=== PATIENT | female | born 1960 | race African-American/Black ===

== ENCOUNTER 2018-01-16 09:13 | Outpatient (CLI) | payer OTHER ==
--- NOTE | 2018-01-16 12:59 | MMO ---
BILATERAL SCREENING MAMMOGRAM: Date: 01/16/18 HISTORY: Screening. COMPARISON: None. TECHNIQUE: Bilateral screening CC and MLO mammograms. This patient's mammogram was interpreted with the assistance of computer-aided detection. FINDINGS: There is a scar marker in the right breast. The breasts are extremely dense, which limits the sensiti vity of mammography. Benign-appearing calcifications in both breasts. IMPRESSION: BIRADS 2: Benign Finding(s) Continued annual mammographic screening is recommended. POS: CHIP
== END 2018-01-16 09:14 | disposition home or self-care (01) ==
LOC: SCSMAMMO 09:13
PROVIDERS: ATTEND Family Medicine
DX: Z12.31 Encounter for screening mammogram for malignant neoplasm of breast (principal)
CPT/HCPCS: 77067

== ENCOUNTER 2018-02-23 07:16 | Outpatient (CLI) | payer OTHER ==
--- NOTE | 2018-02-23 15:24 | NM ---
RADIONUCLIDE PARATHYROID SCAN WITH PLANAR AND SPECT CT IMAGES: Date: 02/23/18 HISTORY: Hyperparathyroidism, unspecified. RADIOPHARMACEUTICAL: 25 mCi technetium-99m sestamibi injected intravenously. FINDINGS: There is physiologic activity in the salivary glands and the thyroid gland. There is a foal area of persistently increased uptake in the region of the left inferior parathyroid gland. IMPRESSION: Left-sided parathyroid adenoma. POS: CHIP
== END 2018-02-23 07:17 | disposition home or self-care (01) ==
LOC: NM 07:16
PROVIDERS: ATTEND Otolaryngology Plastic Surgery within the Head & Neck
DX: E21.3 Hyperparathyroidism, unspecified (principal); D35.1 Benign neoplasm of parathyroid gland
CPT/HCPCS: 78072; A9500

== ENCOUNTER 2018-03-08 07:41 | Day surgery (SDC) | payer OTHER, SELFPAY ==
[2018-03-07 12:02] VITALS: BMI 29.2
[2018-03-08] MEDS ORDERED: Fentanyl 100 MCG/2 ML VIAL ONE ×3 (10:36→12:36)
[2018-03-08] MEDS ORDERED: Ondansetron PF 4 MG/2 ML Vial ONE ×2 (10:37→11:19)
[2018-03-08] MEDS ORDERED: Lidocaine 1% w/Epinephrine 1:200K 30 ML VIAL ONE (10:39)
[2018-03-08] MEDS ORDERED: Succinylcholine Chloride 20 MG/ML 10 ml SYRINGE FS ONE (11:19)
[2018-03-08] MEDS ORDERED: PHENYLEPHRINE-NS 100 MCG/ML 10 ML SYRINGE ONE (11:19)
[2018-03-08] MEDS ORDERED: PROPOFOL 200 MG/20 ML VIAL ONE (11:19)
[2018-03-08] MEDS ORDERED: Dexamethasone 20 MG/5 ML VIAL ONE (11:19)
[2018-03-08] MEDS ORDERED: Ketorolac Tromethamine 30 MG/ML VIAL ONE (11:19)
[2018-03-08] MEDS ORDERED: Lidocaine 1% PF 5 ML VIAL ONE (11:19)
--- NOTE | 2018-03-09 14:22 | OP ---
DATE OF SURGERY: 03/13/2018 PREOPERATIVE DIAGNOSES: 1. Hyperparathyroidism. 2. Hypercalcemia. POSTOPERATIVE DIAGNOSES: 1. Hyperparathyroidism. 2. Hypercalcemia. PROCEDURES PERFORMED: 1. Parathyroid exploration and left superior and inferior parathyroidectomy. 2. Intraoperative laryngeal nerve monitoring. SURGEON: Unruly Villasenor M.D. [employer]: ANESTHESIA: GETA. ESTIMATED BLOOD LOSS: Less than 10 mL. PROCEDURE IN DETAIL: The patient was taken to the operating room and placed supine on the table. Ge neral endotracheal anesthesia was obtained by the Anesthesia staff. Tube was secured in the midline of the upper lip. The laryngeal electrodes then confirmed to be between the vocal cord after shoulde r roll and the tube was secured to the midline of the upper lip. The patient was prepped and d raped in standard surgical fashion. A 5 mL of 1% lidocaine with 1:100,000 epinephrine was injected i nto a skin crease above the clavicle. Following this, an incision was made. The patient was prepped and draped in standard surgical fashion. Incision was made with a 15-blade overlying the thyroid an d parathyroid area approximately 4-5 cm. Dissection was carried through skin and subcutaneous tissue s as well as the platysmal layer. The strap muscles were then identified and some were retracted med ially and some retracted laterally exposing the posterior aspect of the thyroid bed. Following this, great vessels were identified and were retracted laterally gently alongside the thyroid. The inferi or thyroid area and superior thyroid was identified. At the inferior most aspect of the thyroid, the inferior parathyroid gland was identified. It was noted to be calcified and hard. This was sent fo r pathological analysis which confirmed a hypercellular parathyroid tissue. Further exploration of t he superior aspect of the thyroid lobe and staying just above the left recurrent laryngeal nerve, a v an large approximately 3 cm parathyroid adenoma was encountered and was removed. Following this, th e wound was irrigated. Hemostasis obtained. Monocryl stitches were used to reapproximate the strap muscles as well as the platysmal layer and subcuticular layers. Dermabond was placed on the skin. T he patient tolerated procedure well. Pathological analysis, intraoperative frozen sections as well a s rapid PTH assays confirmed removal of the appropriate parathyroid glands.
--- NOTE | 2018-03-12 08:46 | EKG ---
Test Reason : PREOP Blood Pressure : / mmHG Vent. Rate : 064 BPM Atrial Rate : 064 BPM P-R Int : 148 ms QRS Dur : 086 ms QT Int : 376 ms P-R-T Axes : 038 -31 -02 degrees QTc Int : 387 ms Normal sinus rhythm Left axis deviation Abnormal ECG Confirmed by MAJOR RUCKER MD ([id number]) on 03/12/2018 8:46:04 AM Referred By: KELSEY Confirmed By:MAJOR RUCKER MD
== END 2018-03-08 14:15 | disposition home or self-care (01) ==
LOC: SDC 07:41
PROVIDERS: ATTEND Otolaryngology Plastic Surgery within the Head & Neck
PROC: 0GTM0ZZ Resection of Left Superior Parathyroid Gland, Open Approach (ICD-10-PCS; principal; 2018-03-08)
PROC: 0GTP0ZZ Resection of Left Inferior Parathyroid Gland, Open Approach (ICD-10-PCS; principal; 2018-03-08)
DX: E21.3 Hyperparathyroidism, unspecified (principal); I10 Essential (primary) hypertension; E11.9 Type 2 diabetes mellitus without complications; E66.9 Obesity, unspecified; D64.9 Anemia, unspecified; Z68.29 Body mass index [BMI] 29.0-29.9, adult; Z79.82 Long term (current) use of aspirin; Z79.84 Long term (current) use of oral hypoglycemic drugs; Z79.899 Other long term (current) drug therapy
CPT/HCPCS: 36415; 83970; 85014; 88305; 88331; 88334; 93005; 93010; 96374; J0131; J1100; J1885; J2001; J2405; J2704; J3010

== ENCOUNTER 2018-06-06 19:34 | Inpatient (IN) | payer OTHER ==
[2018-06-06 19:59] LABS: Base Excess-Venous 2.8 mmol/L (0 (+/- 2.5)); Bicarbonate (HCO3v) 26.3 mmol/L (1.0-85.0); CO2 Tension (PvCO2) 35.8 mmHg (41.0-51.0); Calcium, Ionized 1.01 mmol/L (1.12-1.32); Hemoglobin - Calc 12.9 g/dL (12.0-18.0); O2 Tension (PvO2) 67.6 mmHg (35.0-45.0); T. Carbon Dioxide 27.4 mmol/L (1.0-85.0); pH (Venous) 7.473 (7.35-7.45); vO2 Saturation-calc 94.5 % (94-98)
[2018-06-06 20:21] LABS: ALT (SGPT) 13 U/L (8-55); AST (SGOT) 15 U/L (5-34); Albumin 4.4 g/dL (3.5-5.0); Alkaline Phosphatase 103 U/L (40-150); Anion Gap 16 mmol/L (10-20); BUN (Urea Nitrogen) 31 mg/dL (9.8-20.1); Bilirubin, Total 0.4 mg/dL (0.2-1.2); Calc. Creatinine Clearance 0 mL/min (70-130); Calcium 10.2 mg/dL (7.8-10.44); Carbon Dioxide 25 mmol/L (22-29); Chloride 88 mmol/L (98-107); Estimated GFR-MDRD 27; Globulin 3.4 g/dL (2.4-3.5); Potassium 4.2 mmol/L (3.5-5.1); Protein, Total 7.8 g/dL (6.0-8.3); Sodium 125 mmol/L (136-145)
[2018-06-06 20:29] LABS: Glucose 759 mg/dL (70-105)
[2018-06-06 20:49] LABS: #Lymphocytes 1.1 thou/uL (1.20-3.40); #Monocytes 0.4 thou/uL (0.11-0.59); %Basophils 0.8 % (0.0-1.0); %Eosinophils 1.1 % (0.0-10.0); %Lymphocytes 24.5 % (21.0-51.0); %Monocytes 8.9 % (0.0-10.0); %Neutrophils 64.7 % (42.0-75.0); Hemoglobin 11.8 g/dL (12.0-16.0); Mean Corpuscular HGB CONC 34.6 g/dL (32.0-36.0); Mean Corpuscular Hemoglobin 28.2 pg (27.0-31.0); Mean Corpuscular Volume 81.5 fL (78.0-98.0); Mean Platelet Volume 7.9 fL (7.4-10.4); Platelet Count 310 thou/uL (130-400); RBC Distribution Width 12.8 % (11.5-14.5); Red Blood Cell (RBC) Count 4.18 mill/uL (4.20-5.40); White Blood Cell (WBC) Count 4.6 thou/uL (4.8-10.8)
[2018-06-06 20:54] LABS: Magnesium 2.3 mg/dL (1.6-2.6); Phosphorus 3.8 mg/dL (2.3-4.7)
[2018-06-06 21:46] LABS: Bilirubin Negative (Negative); Blood, Urine Negative (Negative); Clarity CLEAR (Clear); Glucose, Urine (Dipstick) >=1000 mg/dL (Negative); Leukocyte Small (Negative); Nitrite Negative (Negative); Protein, Urine (Dipstick) Negative (Neg-Trace); Specific Gravity, Urine 1.027 (1.002-1.036); Urobilinogen 0.2 mg/dL (0.2-1.0); pH, Urine 6.5 (5.0-9.0)
[2018-06-06 21:48] LABS: Bacteria/HPF None Seen HPF (None Seen); Hyaline Casts/LPF 0-3 HYALINE CAST LPF (0-3 Hyaline); Pathc Cast-AUWi Flag 0.29 (0-2.49); RBC/HPF 0-3 HPF (0-3); Squamous Epithelial 0-3 HPF (0-3); WBC/HPF 21-50 HPF (0-3)
[2018-06-06] MEDS ORDERED: Dextrose 50% Abboject 50 ML SYRINGE SLOW IVP PRN (23:53)
[2018-06-06] MEDS ORDERED: Dextrose 5% in Water 1,000 ML IV PRN (23:53)
[2018-06-06] MEDS ORDERED: Acetaminophen 325 MG TAB PO PRN (23:54)
[2018-06-06] MEDS ORDERED: Ondansetron HCl/PF 4 MG/2 ML Vial IVP PRN (23:54)
[2018-06-06] MEDS ORDERED: Insulin Regular 300 UNITS/3 ML VIAL ONE (23:58)
[2018-06-07 00:17] VITALS: BMI 29.2
[2018-06-07] MEDS ORDERED: Non-Formulary Item 1 EACH (Ranitidine Hcl [Zantac 75] 75 MG) PO PRN (02:37)
[2018-06-07] MEDS ORDERED: Famotidine 20 MG TAB PO PRN (02:40)
--- NOTE | 2018-06-07 04:32 | HP ---
CODE STATUS: FULL CODE. PRIMARY CARE PHYSICIAN: Peter Welch MD CHIEF COMPLAINT: She was called to come to the hospital due to high blood sugar. HISTORY OF PRESENT ILLNESS: This is a 57-year-old female patient with past medical history of diabet es type 2, which is being followed with Dr. Welch, and had received some medication adjustments in t he past few weeks. However, she has reported having uncontrolled high blood sugar and being difficul t to control even with the medication she was on. She also reported Dr. Welch has been adjusting me dications recently. She would like to have insulin on a regular basis. The patient went to see Dr. Welch today due to polydipsia and polyuria. Labs were drawn. Blood sugar was critically high and t herefore, she was called and requested to go to the ER for that reason. She has been seen in the ER. No other symptoms have been reported. No clear triggers. No alleviating factors. No evidence of any underlying condition triggering or worsening diabetes. REVIEW OF SYSTEMS: Constitutional: No fever or chills. Generalized weakness. Respiratory: No cou gh, no sputum production. Endocrine: The patient has increased polyuria and polydipsia. Cardiovasc ular: No chest pain, palpitation, or shortness of breath. Gastrointestinal: No nausea, vomiting, o r diarrhea. No abdominal pain. Central Nervous System: No dizziness, headache, or feeling lighthea ded. Genitourinary: No burning on urination, increased urine output. Extremities: No leg swelling . All other systems were reviewed and negative except for the findings mentioned above. PAST MEDICAL HISTORY: History of diabetes, hypertension. PAST SURGICAL HISTORY: Hysterectomy and parathyroidectomy. PSYCHIATRIC HISTORY: No previous psychiatric history. SOCIAL HISTORY: No alcohol, no drugs. No smoking history. The patient lives at home. FAMILY HISTORY: Mother with cardiac problems. Father from Alzheimer. ALLERGIES: No known drug allergies reported. MEDICATIONS: Metformin 500 mg 2 times a day, lisinopril 20 mg daily. PHYSICAL EXAMINATION: VITAL SIGNS: On presentation, blood pressure 110/88 with heart rate 99, respiratory rate was 18, tem perature 98.2, oxygen saturation 98 on room air. GENERAL APPEARANCE: The patient is alert, oriented, not in acute distress. HEENT: Eyes, normal conjunctivae. Dry oral mucosa. Anicteric. NECK: No JVD. RESPIRATORY: Bilateral air entry. No rales, no wheezing. Symmetric expansion. CARDIOVASCULAR: Normal rate, regular rhythm. No murmurs, no gallop, no edema. ABDOMEN: Soft. Normal bowel sounds. MUSCULOSKELETAL: Baseline range of motion and strength. No tenderness. SKIN: Warm and intact. No pallor, no rash, no redness. NEUROLOGIC: Baseline sensorium. No evidence of any new focal weakness. Baseline speech. Cranial n erves seem to be intact. PSYCHIATRIC: Good mood. No anxiety. Oriented, optimal judgment. LABORATORY DATA: Reviewed. The patient has a white count of 4.6, hemoglobin 11.8, platelet count 31 0. Blood gas was done. The patient has a VBG with pH of 7.47. Chemistry: Sodium 125, potassium 4. 2, chloride 88, carbon dioxide 25, anion gap 16, BUN 31, creatinine 2.12, that is increased from prev ious ____. GFR estimated at 27. Glucose 759, repeat glucose was 223 after treatment in ER. Calcium 10.2, phosphorus 3.8, magnesium 2.3, total bilirubin 0.4. LFTs were normal. Urinalysis was done an d the patient has a white count of 21 to 50 in urine. ASSESSMENT AND PLAN: The patient will be placed in the hospital with following medical condition: 1. Uncontrolled diabetes with blood sugar above 700, insulin with well controlled. The patient repo rted that she was only on pills, chronic metformin. We will reconcile home meds. Most likely the tristan mcneal will need insulin on a regular basis as outpatient. These have been discussed with her. She w ill follow up with primary care doctor for further management of diabetes. Likely triggered by under lying urinary tract infection. 2. Acute kidney injury on chronic kidney disease. The patient has an increase in creatinine ____, G FR 27. We will hydrate. We will monitor kidney function. We will adjust treatment as needed. Call Nephrology for assistance if no improvement. Avoid nephrotoxins. Hold EDDY. 3. Urinary tract infection, positive urinalysis. Follow up cultures. Adjust treatment as per sensi tivity. 4. Hyponatremia, due to hyperglycemia. The patient will need treatment for underlying condition. C orrected sodium is 131, this is mild. We will monitor. We will adjust treatment as needed. The pat ient is receiving NS. 5. History of hypertension, this is chronic, stable. We will reconcile home medications. Adjust tr eatment as needed. The patient is at high risk of complication given acute kidney injury.
[2018-06-07] MEDS: Sodium Chloride 0.9% 1,000 ML IV SCH ×2 (04:53→16:16)
[2018-06-07] MEDS: cefTRIAXone\\ROCEPHIN 1 GM in Sodium Chloride 0.9% 100 ML IVPB SCH (04:54)
[2018-06-07] MEDS: Insulin Regular 300 UNITS/3 ML VIAL SC PRN ×4 (05:04→21:21)
[2018-06-07 05:27] LABS: #Eosinphils 0.1 thou/uL (0.0-0.7); #Monocytes 0.4 thou/uL (0.11-0.59); #Neutrophils 2.4 thou/uL (1.40-6.50); %Basophils 0.6 % (0.0-1.0); %Eosinophils 1.3 % (0.0-10.0); %Lymphocytes 25.2 % (21.0-51.0); %Monocytes 9.3 % (0.0-10.0); %Neutrophils 63.5 % (42.0-75.0); Hemoglobin 10.5 g/dL (12.0-16.0); Mean Corpuscular Hemoglobin 27.8 pg (27.0-31.0); Mean Corpuscular Volume 81.7 fL (78.0-98.0); Mean Platelet Volume 7.7 fL (7.4-10.4); Platelet Count 238 thou/uL (130-400); RBC Distribution Width 12.5 % (11.5-14.5); Red Blood Cell (RBC) Count 3.76 mill/uL (4.20-5.40); White Blood Cell (WBC) Count 3.8 thou/uL (4.8-10.8)
[2018-06-07 05:50] LABS: Anion Gap 14 mmol/L (10-20); BUN (Urea Nitrogen) 26 mg/dL (9.8-20.1); Calc. Creatinine Clearance 51 mL/min (70-130); Calcium 9.9 mg/dL (7.8-10.44); Carbon Dioxide 26 mmol/L (22-29); Chloride 100 mmol/L (98-107); Estimated GFR-MDRD 44; Glucose 398 mg/dL (70-105); Potassium 3.9 mmol/L (3.5-5.1); Sodium 136 mmol/L (136-145)
[2018-06-07] MEDS ORDERED: Enoxaparin Sodium 40 MG/0.4 ML SYRINGE SC SCH (09:00)
[2018-06-07] MEDS ORDERED: Dapagliflozin Propanediol [Farxiga] 10 MG PO SCH (09:00)
[2018-06-07] MEDS: Loratadine 10 MG TAB PO SCH (09:11)
[2018-06-07] MEDS: Multivit, Therapeutic 1 TAB PO SCH (09:11)
[2018-06-07] MEDS ORDERED: Ondansetron ODT 4 MG TAB PO PRN (15:40)
[2018-06-07] MEDS ORDERED: Calcium Carbonate 500 MG ChewTAB PO PRN (15:40)
[2018-06-07] MEDS ORDERED: Mag-Al 1200 mg/1200 mg/30 ML UDCUP PO PRN (15:40)
[2018-06-07] MEDS ORDERED: Senokot 8.6 MG TAB PO PRN (15:40)
[2018-06-07] MEDS ORDERED: Insulin Glargine 20 UNITS in Pre-Filled Syringe SC SCH (16:00)
[2018-06-07] MEDS ORDERED: glipiZIDE 5 MG TAB PO SCH (16:00)
[2018-06-07] MEDS: Docusate 100 MG CAP PO SCH (21:23)
--- NOTE | 2018-06-07 21:41 | PDOC.PN ---
- Subjective Encounter Start Date: 06/07/18 Encounter Start Time: 17:00 Patient seen and examined for GEORGE/Uncontrolled DM2 and UTI. No new complaints. Feels better. No overnight events - Objective Resuscitation Status: Resuscitation Status FULL:Full Resuscitation MAR Reviewed: Yes Vital Signs & Weight: Vital Signs (12 hours) Temp Pulse Resp BP Pulse Ox 06/07/18 20:45 98.4 F 75 18 122/82 95 06/07/18 16:16 98.3 F 69 20 132/85 97 06/07/18 11:05 97.8 F 82 20 117/79 94 L Weight Weight 170 lb Result Diagrams: 06/08/18 04:21 06/08/18 04:21 Additional Labs: Accuchecks 06/07/18 06/07/18 06/07/18 15:48 11:09 05:04 POC Glucose 304 H 344 H 396 H 06/07/18 06/06/18 00:44 23:56 POC Glucose 223 H 537 H Phys Exam - Physical Examination Constitutional: NAD Respiratory: no wheezing, no rhonchi Cardiovascular: RRR, no rub Gastrointestinal: soft, non-tender, positive bowel sounds Musculoskeletal: no edema Neurological: moves all 4 limbs Dx/Plan - Plan DVT proph w/SCDs IMPRESSION: 1. Uncontrolled DM2 (A1c 15.6) with hyperglycemia 2. UTI 3. GEORGE on CKD 3 due to osmotic diuresis 4. Hyponatremia - prob due to hyperglycemia/dehydration 5. HTN 6. h/o Parathyroid adenoma s/p removal / Chronic Anemia - prob due to renal insuff / GERD PLAN: Start Lantus 20 units daily Start Glipizide at 2.5 mg/d due to renal dysfunction AM labs Cont IVF Hold ACEI / Farxiga Cont Ceftriaxone, Urine culture pending Change sliding scale to moderate Review of Systems - Review of Systems Respiratory: negative: Cough, Dry, Shortness of Breath, Hemoptysis, SOB with Excertion, Pleuritic Pain, Sputum, Wheezing Cardiovascular: negative: chest pain, palpitations, orthopnea, paroxysmal nocturnal dyspnea, edema, light headedness, other - Medications/Allergies Allergies/Adverse Reactions: Allergies Allergy/AdvReac Type Severity Reaction Status Date / Time No Known Drug Allergies Allergy Verified 03/07/18 11:47 Medications: Current Medications Acetaminophen (Tylenol) 650 mg PO Q4H PRN PRN Reason: Headache/Fever or Pain Al Hydroxide/Mg Hydroxide (Maalox) 30 ml PO Q6H PRN PRN Reason: Heartburn or Indigestion Aspirin (Aspirin Chewable) 81 mg PO DAILY [facility] Last Admin: 06/07/18 09:11 Dose: 81 mg Calcium Carbonate (Tums) 1,000 mg PO Q4H PRN PRN Reason: Heartburn or Indigestion Dextrose/Water (Dextrose 50%) 25 gm SLOW IVP PRN PRN PRN Reason: Hypoglycemia Docusate Sodium (Colace) 100 mg PO BID [facility] Last Admin: 06/07/18 21:23 Dose: Not Given Famotidine (Pepcid) 20 mg PO DAILYPRN PRN PRN Reason: ACID REFLUX Glipizide (Glucotrol) 2.5 mg PO DAILY-[facility] Glucagon (Glucagon) 1 mg IM PRN PRN PRN Reason: Hypoglycemia Dextrose/Water (D5w) 1,000 mls @ 0 mls/hr IV .Q0M PRN; As Directed PRN Reason: Hypoglycemia Ceftriaxone Sodium 1 gm/ (Sodium Chloride) 100 mls @ 200 mls/hr IVPB Q24HR [facility] Last Admin: 06/07/18 04:54 Dose: 100 mls Sodium Chloride (Normal Saline 0.9%) 1,000 mls @ 100 mls/hr IV .Q10H [facility] Last Admin: 06/07/18 16:16 Dose: 1,000 mls Insulin Glargine 20 units/ (Miscellaneous Medication) 0.2 mls @ 0 mls/hr SC QAM [facility] Insulin Human Regular (Humulin R) 0 units SC .MODERATE SLIDING SC PRN PRN Reason: Moderate Correctional Scale Last Admin: 06/07/18 16:15 Dose: 8 unit Insulin Human Regular (Humulin R) 0 units SC .BEDTIME SLIDING SC PRN PRN Reason: Bedtime Correctional Scale Last Admin: 06/07/18 21:21 Dose: 4 unit Loratadine (Claritin) 10 mg PO DAILY [facility] Last Admin: 06/07/18 09:11 Dose: 10 mg Multivitamins (Theragran) 1 tab PO DAILY [facility] Last Admin: 06/07/18 09:11 Dose: 1 tab Ondansetron HCl (Zofran) 4 mg IVP Q6H PRN PRN Reason: Nausea/Vomiting Ondansetron HCl (Zofran Odt) 4 mg PO Q6H PRN PRN Reason: Nausea/Vomiting Senna (Senokot) 2 tab PO HSPRN PRN PRN Reason: Constipation
[2018-06-08] MEDS: Sodium Chloride 0.9% 1,000 ML IV SCH ×2 (00:44→09:39)
[2018-06-08] MEDS: Insulin Regular 300 UNITS/3 ML VIAL SC PRN ×5 (02:07→20:25)
[2018-06-08 05:30] LABS: #Eosinphils 0.1 thou/uL (0.0-0.7); #Lymphocytes 1.2 thou/uL (1.20-3.40); #Monocytes 0.3 thou/uL (0.11-0.59); #Neutrophils 1.9 thou/uL (1.40-6.50); %Basophils 0.9 % (0.0-1.0); %Eosinophils 1.6 % (0.0-10.0); %Lymphocytes 34.3 % (21.0-51.0); %Monocytes 9.7 % (0.0-10.0); %Neutrophils 53.6 % (42.0-75.0); Hemoglobin 10.9 g/dL (12.0-16.0); Mean Corpuscular HGB CONC 32.3 g/dL (32.0-36.0); Mean Corpuscular Volume 83.6 fL (78.0-98.0); Mean Platelet Volume 7.9 fL (7.4-10.4); Platelet Count 246 thou/uL (130-400); RBC Distribution Width 12.8 % (11.5-14.5); Red Blood Cell (RBC) Count 4.03 mill/uL (4.20-5.40); White Blood Cell (WBC) Count 3.5 thou/uL (4.8-10.8)
[2018-06-08] MEDS: cefTRIAXone\\ROCEPHIN 1 GM in Sodium Chloride 0.9% 100 ML IVPB SCH (05:30)
[2018-06-08 05:49] LABS: Anion Gap 12 mmol/L (10-20); BUN (Urea Nitrogen) 20 mg/dL (9.8-20.1); Calc. Creatinine Clearance 68 mL/min (70-130); Calcium 9.7 mg/dL (7.8-10.44); Carbon Dioxide 24 mmol/L (22-29); Chloride 106 mmol/L (98-107); Estimated GFR-MDRD 62; Glucose 177 mg/dL (70-105); Magnesium 2.1 mg/dL (1.6-2.6); Potassium 4.1 mmol/L (3.5-5.1); Sodium 138 mmol/L (136-145)
[2018-06-08] MEDS ORDERED: glipiZIDE 5 MG TAB PO SCH (07:30)
[2018-06-08] MEDS ORDERED: Insulin Glargine 20 UNITS in Pre-Filled Syringe SC SCH (09:00)
[2018-06-08] MEDS: Loratadine 10 MG TAB PO SCH (09:40)
[2018-06-08] MEDS: Multivit, Therapeutic 1 TAB PO SCH (09:40)
[2018-06-08] MEDS: Docusate 100 MG CAP PO SCH ×2 (09:40→20:31)
--- NOTE | 2018-06-08 15:32 | PDOC.PN ---
- Subjective Encounter Start Date: 06/08/18 Encounter Start Time: 13:00 Patient seen and examined for UTI/GEORGE and uncontrolled DM2. No new complaints. No overnight events - Objective Resuscitation Status: Resuscitation Status FULL:Full Resuscitation MAR Reviewed: Yes Vital Signs & Weight: Vital Signs (12 hours) Temp Pulse Resp BP Pulse Ox 06/08/18 07:51 98.4 F 70 22 H 132/81 95 06/08/18 07:29 98.4 F 75 18 Weight Weight 170 lb Result Diagrams: 06/08/18 04:21 06/08/18 04:21 Additional Labs: Accuchecks 06/08/18 06/08/18 06/08/18 11:11 05:28 02:08 POC Glucose 328 H 151 H 222 H 06/07/18 06/07/18 21:23 15:48 POC Glucose 320 H 304 H Phys Exam - Physical Examination Constitutional: NAD Respiratory: no wheezing, no rhonchi Cardiovascular: RRR, no rub Gastrointestinal: soft, non-tender, positive bowel sounds Musculoskeletal: no edema Neurological: moves all 4 limbs Dx/Plan - Plan DVT proph w/SCDs IMPRESSION: 1. Uncontrolled DM2 (A1c 15.6) with hyperglycemia 2. UTI 3. GEORGE on CKD 3 due to osmotic diuresis - improving 4. Hyponatremia - prob due to hyperglycemia/dehydration 5. HTN 6. h/o Parathyroid adenoma s/p removal / Chronic Anemia - prob due to renal insuff / GERD PLAN: Cont Lantus with sliding scale Monitor glucose today DC Glipizide Change NS to 50 ml/hr Resume ACEI / Metformin in AM Cont Ceftriaxone Await Urine culture DC in AM if stable Review of Systems - Review of Systems Respiratory: negative: Cough, Dry, Shortness of Breath, Hemoptysis, SOB with Excertion, Pleuritic Pain, Sputum, Wheezing Cardiovascular: negative: chest pain, palpitations, orthopnea, paroxysmal nocturnal dyspnea, edema, light headedness, other - Medications/Allergies Allergies/Adverse Reactions: Allergies Allergy/AdvReac Type Severity Reaction Status Date / Time No Known Drug Allergies Allergy Verified 03/07/18 11:47 Medications: Current Medications Acetaminophen (Tylenol) 650 mg PO Q4H PRN PRN Reason: Headache/Fever or Pain Al Hydroxide/Mg Hydroxide (Maalox) 30 ml PO Q6H PRN PRN Reason: Heartburn or Indigestion Aspirin (Aspirin Chewable) 81 mg PO DAILY [facility] Last Admin: 06/08/18 09:40 Dose: 81 mg Calcium Carbonate (Tums) 1,000 mg PO Q4H PRN PRN Reason: Heartburn or Indigestion Dextrose/Water (Dextrose 50%) 25 gm SLOW IVP PRN PRN PRN Reason: Hypoglycemia Docusate Sodium (Colace) 100 mg PO BID [facility] Last Admin: 06/08/18 09:40 Dose: Not Given Famotidine (Pepcid) 20 mg PO DAILYPRN PRN PRN Reason: ACID REFLUX Glucagon (Glucagon) 1 mg IM PRN PRN PRN Reason: Hypoglycemia Dextrose/Water (D5w) 1,000 mls @ 0 mls/hr IV .Q0M PRN; As Directed PRN Reason: Hypoglycemia Ceftriaxone Sodium 1 gm/ (Sodium Chloride) 100 mls @ 200 mls/hr IVPB Q24HR [facility] Last Admin: 06/08/18 05:30 Dose: 100 mls Insulin Glargine 20 units/ (Miscellaneous Medication) 0.2 mls @ 0 mls/hr SC QAM [facility] Last Admin: 06/08/18 09:40 Dose: 0.2 mls Sodium Chloride (Normal Saline 0.9%) 1,000 mls @ 50 mls/hr IV .Q20H [facility] Last Admin: 06/08/18 09:39 Dose: Not Given Insulin Human Regular (Humulin R) 0 units SC .MODERATE SLIDING SC PRN PRN Reason: Moderate Correctional Scale Last Admin: 06/08/18 12:14 Dose: 8 unit Insulin Human Regular (Humulin R) 0 units SC .BEDTIME SLIDING SC PRN PRN Reason: Bedtime Correctional Scale Last Admin: 06/08/18 02:07 Dose: 2 unit Lisinopril (Zestril) 5 mg PO DAILY [facility] Loratadine (Claritin) 10 mg PO DAILY [facility] Last Admin: 06/08/18 09:40 Dose: 10 mg Metformin HCl (Glucophage) 1,000 mg PO BID-[facility] Multivitamins (Theragran) 1 tab PO DAILY [facility] Last Admin: 06/08/18 09:40 Dose: 1 tab Ondansetron HCl (Zofran) 4 mg IVP Q6H PRN PRN Reason: Nausea/Vomiting Ondansetron HCl (Zofran Odt) 4 mg PO Q6H PRN PRN Reason: Nausea/Vomiting Senna (Senokot) 2 tab PO HSPRN PRN PRN Reason: Constipation
[2018-06-08] MEDS ORDERED: Insulin Glargine 10 UNITS in Pre-Filled Syringe 1 EACH SC SCH (21:45)
[2018-06-09] MEDS: cefTRIAXone\\ROCEPHIN 1 GM in Sodium Chloride 0.9% 100 ML IVPB SCH (04:29)
[2018-06-09] MEDS: Sodium Chloride 0.9% 1,000 ML IV SCH ×2 (04:30→19:47)
[2018-06-09] MEDS ORDERED: Insulin Glargine 25 UNITS in Pre-Filled Syringe 1 EACH SC SCH (09:00)
[2018-06-09] MEDS: Loratadine 10 MG TAB PO SCH (09:51)
[2018-06-09] MEDS: metFORMIN 500 MG TAB PO SCH ×2 (09:51→16:45)
[2018-06-09] MEDS: Multivit, Therapeutic 1 TAB PO SCH (09:52)
[2018-06-09] MEDS: Lisinopril 5 MG TAB PO SCH (09:52)
[2018-06-09] MEDS: Docusate 100 MG CAP PO SCH ×2 (10:03→19:16)
[2018-06-09] MEDS: Insulin Regular 300 UNITS/3 ML VIAL SC PRN ×2 (11:58→20:54)
[2018-06-09] MEDS ORDERED: Insulin Regular 300 UNITS/3 ML VIAL SC PRN ×2 (12:09→12:25)
[2018-06-09] MEDS ORDERED: Insulin Regular 300 UNITS/3 ML VIAL SC SCH (16:30)
[2018-06-09] MEDS ORDERED: Insulin NPH/Reg Insulin Hm 300 UNITS/3 ML VIAL SC SCH (17:00)
--- NOTE | 2018-06-09 22:13 | PDOC.PN ---
- Subjective Encounter Start Date: 06/09/18 Encounter Start Time: 11:00 Patient seen and examined for uncontrolled DM2. No new complaints. No overnight events - Objective Resuscitation Status: Resuscitation Status FULL:Full Resuscitation MAR Reviewed: Yes Vital Signs & Weight: Vital Signs (12 hours) Temp Pulse Resp BP Pulse Ox 06/09/18 20:24 98.4 F 76 18 109/75 98 06/09/18 19:57 97.9 F 70 18 Weight Weight 170 lb I&O: 06/08/18 06/09/18 06/10/18 06:59 06:59 06:59 Intake Total 1999 Balance 1999 Result Diagrams: 06/08/18 04:21 06/08/18 04:21 Additional Labs: Accuchecks 06/09/18 06/09/18 06/09/18 20:23 16:27 11:42 POC Glucose 281 H 278 H 515 H 06/09/18 06/09/18 05:07 02:46 POC Glucose 142 H 142 H Phys Exam - Physical Examination Constitutional: NAD Respiratory: no wheezing, no rhonchi Cardiovascular: RRR, no rub Gastrointestinal: soft, non-tender, positive bowel sounds Musculoskeletal: no edema Dx/Plan - Plan continue antibiotics, out of bed/ambulate, DVT proph w/SCDs IMPRESSION: 1. Uncontrolled DM2 (A1c 15.6) with hyperglycemia - sugars still elevated 2. UTI 3. GEORGE on CKD 3 due to osmotic diuresis - improving 4. Hyponatremia - prob due to hyperglycemia/dehydration 5. HTN 6. h/o Parathyroid adenoma s/p removal / Chronic Anemia - prob due to renal insuff / GERD PLAN: Change Lantus to 30 units with sliding scale Add 5 regular insulin with each meal Cont Metformin DC IVF Cont Ceftriaxone Review of Systems - Review of Systems Respiratory: negative: Cough, Dry, Shortness of Breath, Hemoptysis, SOB with Excertion, Pleuritic Pain, Sputum, Wheezing Cardiovascular: negative: chest pain, palpitations, orthopnea, paroxysmal nocturnal dyspnea, edema, light headedness, other - Medications/Allergies Allergies/Adverse Reactions: Allergies Allergy/AdvReac Type Severity Reaction Status Date / Time No Known Drug Allergies Allergy Verified 03/07/18 11:47 Medications: Current Medications Acetaminophen (Tylenol) 650 mg PO Q4H PRN PRN Reason: Headache/Fever or Pain Al Hydroxide/Mg Hydroxide (Maalox) 30 ml PO Q6H PRN PRN Reason: Heartburn or Indigestion Aspirin (Aspirin Chewable) 81 mg PO DAILY [facility] Last Admin: 06/09/18 09:51 Dose: 81 mg Calcium Carbonate (Tums) 1,000 mg PO Q4H PRN PRN Reason: Heartburn or Indigestion Dextrose/Water (Dextrose 50%) 25 gm SLOW IVP PRN PRN PRN Reason: Hypoglycemia Docusate Sodium (Colace) 100 mg PO BID [facility] Last Admin: 06/09/18 19:16 Dose: Not Given Famotidine (Pepcid) 20 mg PO DAILYPRN PRN PRN Reason: ACID REFLUX Glucagon (Glucagon) 1 mg IM PRN PRN PRN Reason: Hypoglycemia Dextrose/Water (D5w) 1,000 mls @ 0 mls/hr IV .Q0M PRN; As Directed PRN Reason: Hypoglycemia Ceftriaxone Sodium 1 gm/ (Sodium Chloride) 100 mls @ 200 mls/hr IVPB Q24HR [facility] Last Admin: 06/09/18 04:29 Dose: 100 mls Insulin Glargine 30 units/ (Miscellaneous Medication) 0.3 mls @ 0 mls/hr SC QAM [facility] Insulin Human Regular (Humulin R) 0 units SC .BEDTIME SLIDING SC PRN PRN Reason: Bedtime Correctional Scale Last Admin: 06/09/18 20:54 Dose: 3 unit Insulin Human Regular (Humulin R) 5 units SC 0730 [facility] Insulin Human Regular (Humulin R) 5 units SC 1130 [facility] Insulin Human Regular (Humulin R) 5 units SC 1630 [facility] Last Admin: 06/09/18 16:41 Dose: 5 unit Insulin Human Regular (Humulin R) 0 units SC .MODERATE SLIDING SC PRN PRN Reason: Moderate Correctional Scale Last Admin: 06/09/18 16:42 Dose: 6 unit Lisinopril (Zestril) 5 mg PO DAILY [facility] Last Admin: 06/09/18 09:52 Dose: 5 mg Loratadine (Claritin) 10 mg PO DAILY [facility] Last Admin: 06/09/18 09:51 Dose: 10 mg Metformin HCl (Glucophage) 1,000 mg PO BID-[facility] Last Admin: 06/09/18 16:45 Dose: 1,000 mg Multivitamins (Theragran) 1 tab PO DAILY [facility] Last Admin: 06/09/18 09:52 Dose: 1 tab Ondansetron HCl (Zofran) 4 mg IVP Q6H PRN PRN Reason: Nausea/Vomiting Ondansetron HCl (Zofran Odt) 4 mg PO Q6H PRN PRN Reason: Nausea/Vomiting Senna (Senokot) 2 tab PO HSPRN PRN PRN Reason: Constipation
[2018-06-10] MEDS: cefTRIAXone\\ROCEPHIN 1 GM in Sodium Chloride 0.9% 100 ML IVPB SCH (05:02)
[2018-06-10] MEDS ORDERED: Insulin Regular 300 UNITS/3 ML VIAL SC SCH ×2 (07:30→11:30)
[2018-06-10] MEDS ORDERED: Insulin NPH/Reg Insulin Hm 300 UNITS/3 ML VIAL SC SCH (08:00)
[2018-06-10] MEDS: metFORMIN 500 MG TAB PO SCH (08:02)
[2018-06-10] MEDS: Loratadine 10 MG TAB PO SCH (08:04)
[2018-06-10] MEDS: Lisinopril 5 MG TAB PO SCH (08:04)
[2018-06-10] MEDS: Docusate 100 MG CAP PO SCH (08:04)
[2018-06-10] MEDS: Multivit, Therapeutic 1 TAB PO SCH (08:05)
[2018-06-10] MEDS ORDERED: Insulin Glargine 30 UNITS in Pre-Filled Syringe SC SCH (09:00)
[2018-06-10 11:24] VITALS: TEMP 98
[2018-06-10 11:36] VITALS: BP 131/83
--- NOTE | 2018-06-11 10:38 | DIS ---
DATE OF DISCHARGE: 06/10/2018 DISCHARGE DISPOSITION: Home. Follow up with primary care physician, Dr. Welch, next week. Outpatient diabetic class was arranged. The patient was seen and examined on the day of discharge. Denies any new complaints, no chest pain, shortness of breath, palpitations. DISCHARGE MEDICATIONS: Patient had some issues with insurance getting Lantus. She will try to conta ct the insurance company on Tuesday. In the meantime, she will be discharged home on Novolin 70/30, 2 5 in the morning and 15 in the evening. All other home medications were left unchanged. BRIEF HOSPITAL COURSE: Patient is a 57-year-old female with diabetes mellitus, type 2, presented to the hospital from the primary care physician's office due to severely elevated blood sugar. Please r efer to the history and physical for further details. The patient was admitted to the hospital with a diagnosis of uncontrolled diabetes mellitus, type 2. Blood sugar on admission was 759. She has been started on insulin. She was placed on Lantus along with sliding scale. However, she was unable to get it as outpatient due to insurance issues. For ti me being, she will continue 70/30, 25 units in the morning and 15 units in the evening. She was also diagnosed with urinary tract infection and has completed IV antibiotics. Her initial workup on admi ssion was consistent with acute kidney injury with creatinine 2.22 that has improved to 1.11 with IV fluids. She appears stable for discharge. FINAL DIAGNOSES: 1. Uncontrolled diabetes mellitus, type 2. 2. Acute kidney injury. 3. Chronic kidney disease, stage 3. 4. Urinary tract infection. 5. Hyponatremia. 6. Hypertension. 7. History of parathyroid adenoma, status post surgery in the past. 8. Chronic anemia. 9. Gastroesophageal reflux disease. Plan of care was discussed with the patient in detail. She stated understanding.
== END 2018-06-10 16:26 | disposition home or self-care (01) | DRG 638 ==
LOC: ERS 19:34 → T4-A 23:54
PROVIDERS: ADMIT Hospitalist; ATTEND Hospitalist
DX: E11.65 Type 2 diabetes mellitus with hyperglycemia (principal); N39.0 Urinary tract infection, site not specified; N17.9 Acute kidney failure, unspecified; E87.1 Hypo-osmolality and hyponatremia; I12.9 Hypertensive chronic kidney disease with stage 1 through stage 4 chronic kidney disease, or unspecified chronic kidney disease; E11.22 Type 2 diabetes mellitus with diabetic chronic kidney disease; N18.3 Chronic kidney disease, stage 3 (moderate); D64.9 Anemia, unspecified; K21.9 Gastro-esophageal reflux disease without esophagitis; E86.0 Dehydration; Z79.84 Long term (current) use of oral hypoglycemic drugs; Z79.899 Other long term (current) drug therapy
CPT/HCPCS: 36415; 36416; 80048; 81003; 81015; 82010; 82330; 82803; 83735; 84100; 85025; 87086; 96361; 96374; J0696; J1650; J1815; J7050

== ENCOUNTER 2021-04-14 08:14 | Outpatient (CLI) | payer OTHER | END 2021-04-14 08:15 | disposition home or self-care (01) | LOC: BICMAMMO 08:14 | PROVIDERS: ATTEND Family Medicine | DX: Z12.31 Encounter for screening mammogram for malignant neoplasm of breast (principal); Z91.89 Other specified personal risk factors, not elsewhere classified | CPT/HCPCS: 77063; 77067 ==

== ENCOUNTER 2023-03-14 14:55 | Outpatient (CLI) | payer BC | END 2023-03-14 14:56 | disposition home or self-care (01) | LOC: BICULT 14:55 | PROVIDERS: ATTEND Internal Medicine Nephrology | DX: N18.30 Chronic kidney disease, stage 3 unspecified (principal); N28.1 Cyst of kidney, acquired | CPT/HCPCS: 76770 ==

== ENCOUNTER 2023-07-07 13:34 | Outpatient (CLI) | payer BC | END 2023-07-07 13:35 | disposition home or self-care (01) | LOC: BICMAMMO 13:34 | PROVIDERS: ATTEND Family Medicine | DX: Z12.31 Encounter for screening mammogram for malignant neoplasm of breast (principal); Z91.89 Other specified personal risk factors, not elsewhere classified | CPT/HCPCS: 77063; 77067 ==

== ENCOUNTER 2024-11-03 08:10 | Observation (INO) | payer OTHER ==
[2024-11-03 10:07] VITALS: BMI 28.3
[2024-11-03] MEDS ORDERED: Iopamidol-370 76% 500 ML MDV (1 ML CHARGE) ONE (11:11)
[2024-11-03] MEDS ORDERED: hydrALAZINE 20 MG/ML VIAL SLOW IVP PRN (12:22)
[2024-11-03] MEDS ORDERED: Ondansetron ODT 4 MG TAB PO PRN (12:22)
[2024-11-03] MEDS ORDERED: Dextrose 50% Abboject 50 ML SYRINGE SLOW IVP PRN (12:22)
[2024-11-03] MEDS ORDERED: Ondansetron PF 4 MG/2 ML Vial IVP PRN (12:22)
[2024-11-03] MEDS ORDERED: Senokot S 8.6-50 MG TAB PO PRN (12:22)
[2024-11-03] MEDS ORDERED: Dextrose 5% in Water 1,000 ML IV PRN (12:22)
[2024-11-03] MEDS ORDERED: Glucagon 1 MG/ML KIT IM PRN (12:22)
[2024-11-03] MEDS: Meclizine HCl 25 MG TAB PO SCH (14:06)
[2024-11-03] MEDS: Atorvastatin Calcium 40 MG TAB PO SCH (21:06)
[2024-11-03] MEDS: Insulin Lispro 100 UNIT/ML 10 ML VIAL SC PRN (22:34)
[2024-11-04 05:26] LABS: Anion Gap 11 mmol/L (10-20); BUN (Urea Nitrogen) 27 mg/dL (9.8-20.1); Calc. Creatinine Clearance 46 mL/min (70-130); Calcium 9.8 mg/dL (7.8-10.44); Carbon Dioxide 25 mmol/L (23-31); Cardiac Risk 3.6 (Less than 4.5); Chloride 108 mmol/L (98-107); Cholesterol 211 mg/dl (< 200 Desired); Estimated GFR 40; Glucose 97 mg/dL (80-115); HDL Cholesterol 58 mg/dL (>60 Neg Risk); LDL Cholesterol, Calculated 136 mg/dL; Potassium 4.2 mmol/L (3.5-5.1); Sodium 140 mmol/L (136-145); Triglycerides 84 mg/dL (Less than 150)
[2024-11-04] MEDS: Loratadine 10 MG TAB PO SCH (09:45)
[2024-11-04] MEDS: Enoxaparin 40 MG (0.4 mL) SYRINGE SC SCH (09:45)
[2024-11-04] MEDS: Aspirin Chewable 81 MG TAB PO SCH (09:45)
[2024-11-04] MEDS: Pantoprazole DR 40 MG TAB PO SCH (09:45)
[2024-11-04] MEDS ORDERED: Meclizine HCl 25 MG TAB PO PRN (17:29)
[2024-11-04] MEDS: Insulin Lispro 100 UNIT/ML 10 ML VIAL SC PRN (18:12)
[2024-11-04] MEDS: NIFEdipine XL 30 MG ER.TAB PO SCH (18:40)
[2024-11-04] MEDS: Acetaminophen 325 MG TAB PO PRN (20:26)
[2024-11-04] MEDS: Insulin Glargine 30 UNITS/0.3 ML VIAL SC SCH (21:53)
[2024-11-05] MEDS: Atenolol 50 MG TAB PO SCH ×2 (00:24→10:02)
[2024-11-05 05:45] LABS: #Basophils Less than 0.03 10x3/uL (0.0-0.2); %Basophils 0.5 % (0.0-1.0); %Eosinophils 4.7 % (0.0-10.0); %Lymphocytes 21.9 % (21.0-51.0); %Monocytes 12.6 % (0.0-10.0); %Neutrophils 60.3 % (42.0-75.0); Hematocrit 31.6 % (36.0-47.0); Hemoglobin 10.1 g/dL (12.0-16.0); Mean Corpuscular Hemoglobin 25.8 pg (27.0-31.0); Mean Corpuscular Volume 80.6 fL (78.0-98.0); Mean Platelet Volume 10.1 fL (7.4-10.4); Platelet Count 304 10x3/uL (130-400); RBC Distribution Width 14.6 % (11.5-14.5); Red Blood Cell (RBC) Count 3.92 mill/uL (4.20-5.40)
[2024-11-05 06:40] LABS: Anion Gap 15 mmol/L (10-20); BUN (Urea Nitrogen) 25 mg/dL (9.8-20.1); Calc. Creatinine Clearance 41 mL/min (70-130); Calcium 10.1 mg/dL (7.8-10.44); Carbon Dioxide 22 mmol/L (23-31); Chloride 103 mmol/L (98-107); Estimated GFR 35; Glucose 237 mg/dL (80-115); Magnesium 1.5 mg/dL (1.6-2.6); Sodium 136 mmol/L (136-145)
[2024-11-05] MEDS: Magnesium 2 GM/50 ML(in water) 2 GM in Premix 1 BAG IVPB SCH (09:59)
[2024-11-05] MEDS: NIFEdipine XL 30 MG ER.TAB PO SCH (10:01)
[2024-11-05] MEDS: Insulin Glargine 30 UNITS/0.3 ML VIAL SC SCH (10:02)
[2024-11-05 13:46] VITALS: BP 157/68; TEMP 98.2
== END 2024-11-05 14:26 | disposition home or self-care (01) ==
LOC: 2NO 09:27
PROVIDERS: ADMIT Internal Medicine; ATTEND Internal Medicine
PROC: B24BZZZ Ultrasonography of Heart with Aorta (ICD-10-PCS; principal; 2024-11-03)
DX: R29.818 Other symptoms and signs involving the nervous system (principal); I12.9 Hypertensive chronic kidney disease with stage 1 through stage 4 chronic kidney disease, or unspecified chronic kidney disease; N18.30 Chronic kidney disease, stage 3 unspecified; E11.22 Type 2 diabetes mellitus with diabetic chronic kidney disease; Z98.41 Cataract extraction status, right eye; Z98.42 Cataract extraction status, left eye; Z90.710 Acquired absence of both cervix and uterus; Z90.89 Acquired absence of other organs; Z79.82 Long term (current) use of aspirin; Z79.84 Long term (current) use of oral hypoglycemic drugs; Z79.4 Long term (current) use of insulin; Z79.899 Other long term (current) drug therapy
CPT/HCPCS: 70496; 70498; 70551; 80048 ×2; 80061; 82962 ×3; 83735; 84443; 85025; 93306; 96372 ×2; 96374; 97116; 97530; G0378 ×3; J1650 ×2; J1815 ×2; J3475; Q9967; 36415; 36416

== ENCOUNTER 2025-01-01 15:05 | Outpatient (CLI) | payer OTHER | END 2025-01-01 15:06 | disposition home or self-care (01) | LOC: BICMAMMO 15:05 | PROVIDERS: ATTEND Family Medicine | DX: Z12.31 Encounter for screening mammogram for malignant neoplasm of breast (principal); Z91.89 Other specified personal risk factors, not elsewhere classified | CPT/HCPCS: 77063; 77067 ==